=== PATIENT | male | born 1945 | race Caucasian/White ===

== ENCOUNTER → 2017-06-16 | Outpatient (CLI) | payer BC, OTHER ==
[~2017-06-16] VITALS: Ht 167.6 cm; Wt 108.4 kg
[~2017-06-16] MED LIST: ALDACTONE25 MG PO; ALLOPURINOL100 MG PO; AMIODARONE HCL100 MG PO; BUMETANIDE2 MG PO; COUMADIN2 MG PO; COUMADIN2.5 MG PO; FISH OIL 1,0001 EAC7 PO; GLUCOTROL5 MG PO; IRON325 M1 PO; JANUVIA25 MG PO; K-DUR20 MEQ PO; PROTONIX40 MG PO; SIMVASTATIN40 MG PO
[2017-06-16 13:50] LABS: INTER. NORMALIZED RATIO 1.3
== END | disposition home or self-care (01) ==
LOC: AMB 13:04
PROVIDERS: Anesthesiology; Specialist
DX: D50.9 Iron deficiency anemia, unspecified (principal); B37.81 Candidal esophagitis; D12.0 Benign neoplasm of cecum; D12.2 Benign neoplasm of ascending colon; K57.30 Diverticulosis of large intestine without perforation or abscess without bleeding; Z87.11 Personal history of peptic ulcer disease; I48.91 Unspecified atrial fibrillation; I13.0 Hypertensive heart and chronic kidney disease with heart failure and stage 1 through stage 4 chronic kidney disease, or unspecified chronic kidney disease; E11.22 Type 2 diabetes mellitus with diabetic chronic kidney disease; N18.9 Chronic kidney disease, unspecified; I50.9 Heart failure, unspecified; I25.10 Atherosclerotic heart disease of native coronary artery without angina pectoris; Z95.5 Presence of coronary angioplasty implant and graft; Z79.01 Long term (current) use of anticoagulants; E66.3 Overweight; Z68.39 Body mass index [BMI] 39.0-39.9, adult; Z79.84 Long term (current) use of oral hypoglycemic drugs; Z88.8 Allergy status to other drugs, medicaments and biological substances
CPT/HCPCS: 82948; 85610; 88305

== ENCOUNTER → 2017-08-21 | Outpatient (CLI) | payer BC, OTHER | END | disposition home or self-care (01) | LOC: NUC 08:34 | DX: M47.892 Other spondylosis, cervical region (principal); M47.895 Other spondylosis, thoracolumbar region; M19.012 Primary osteoarthritis, left shoulder; M19.011 Primary osteoarthritis, right shoulder; M17.0 Bilateral primary osteoarthritis of knee; M19.072 Primary osteoarthritis, left ankle and foot; M19.071 Primary osteoarthritis, right ankle and foot | CPT/HCPCS: 78306; A9503 ==